=== PATIENT | female | born 1980 ===

== ENCOUNTER 2017-04-11 18:19 | Emergency (ER) | payer OTHER ==
[2017-04-11 18:30] VITALS: BP 135/84; PULSE 79; RESP 18; TEMP 99.2; O2SAT 100
--- NOTE | 2017-04-11 19:07 | ED PDOC ---
HPI: CCC, URI, Sore Throat Time Seen by Provider: 04/11/17 18:31 Chief Complaint (Nursing): Headache Chief Complaint (Provider): sinus pain History Per: Patient History/Exam Limitations: no limitations Additional Complaint(s): 36yo F in ED for eval frontal sinus pressure x 1 week-with body aches, took theraflu and not effective. no fever no chills no abd pain no rash no cough no rhinorrhea. Past Medical History Reviewed: Historical Data, Nursing Documentation, Vital Signs Vital Signs: Last Vital Signs Temp 99.2 F 04/11/17 18:28 Pulse 79 04/11/17 18:28 Resp 18 04/11/17 18:28 BP 135/84 04/11/17 18:28 Pulse Ox 100 04/11/17 18:28 - Medical History PMH: No Chronic Diseases - Surgical History Surgical History: Cholecystectomy - Family History Family History: States: No Known Family Hx - Home Medications Home Medications: Ambulatory Orders Medication Instructions Recorded Acetaminophen/Butalbital/Caf 1 tab PO Q6 #12 tab 04/11/17 [Fioricet] Mometasone Furoate [Nasonex] 1 - 2 spray NS BID #17 gm 04/11/17 - Allergies Allergies/Adverse Reactions: Allergies Allergy/AdvReac Type Severity Reaction Status Date / Time No Known Allergies Allergy Verified 04/11/17 18:28 Review of Systems ROS Statement: Except As Marked, All Systems Reviewed And Found Negative ENT: Negative for: Ear Pain, Ear Discharge, Nose Pain, Nose Discharge, Nose Congestion, Mouth Pain, Mouth Swelling, Throat Pain, Throat Swelling Respiratory: Negative for: Cough, Shortness of Breath Physical Exam - Reviewed Nursing Documentation Reviewed: Yes Vital Signs Reviewed: Yes - Physical Exam Appears: Positive for: Well, Non-toxic, No Acute Distress Head Exam: Positive for: ATRAUMATIC, NORMAL INSPECTION, NORMOCEPHALIC Skin: Positive for: Normal Color, Warm, DRY Eye Exam: Positive for: Normal appearance, EOMI, PERRL. Negative for: Periorbital swelling, Periorbital tenderness ENT: Positive for: Normal ENT Inspection, Nasal Congestion, Other (post nasal drip). Negative for: Pharyngeal Erythema, Tonsillar Exudate, Tonsillar Swelling Neck: Positive for: Normal, Painless ROM Cardiovascular/Chest: Positive for: Regular Rate, Rhythm Respiratory: Positive for: CNT, Normal Breath Sounds Neurologic/Psych: Positive for: Alert, Oriented - ECG O2 Sat by Pulse Oximetry: 100 Medical Decision Making Medical Decision Making: pt with viral sinusitis. will be d/c with fiorcet for BRIAN and nasonex for nasal passage. avised to f.u with pmd. Disposition - Clinical Impression Clinical Impression: Sinus headache - Patient ED Disposition Is Patient to be Admitted: No Counseled Patient/Family Regarding: Need For Followup - Disposition Disposition: Routine/Home Disposition Time: 19:09 Condition: STABLE Prescriptions: Acetaminophen/Butalbital/Caf [Fioricet] 1 tab PO Q6 #12 tab Mometasone Furoate [Nasonex] 1 - 2 spray NS BID #17 gm Instructions: Acute Headache (ED), Sinusitis (ED) Forms: [facility] (Slovenian)
== END 2017-04-11 19:22 | disposition home or self-care (01) ==
LOC: H.ER 18:19
DX: R51 Headache (principal)

== ENCOUNTER 2018-06-01 01:41 | Emergency (ER) | payer SELFPAY ==
[2018-06-01 01:59] VITALS: TEMP 98; O2SAT 100
--- NOTE | 2018-06-01 02:26 | ED PDOC ---
HPI: Hypertension/Hypotension Time Seen by Provider: 06/01/18 02:01 Chief Complaint (Nursing): High Blood Pressure Chief Complaint (Provider): High Blood Pressure History Per: Patient History/Exam Limitations: no limitations Current Symptoms Are (Timing): Still Present Additional Complaint(s): 37 year old female, with no past medical history, presents to the ED complaining of high blood pressure. Patient reports she self diagnosed herself with hypertension 1 month ago when she had an episode of a headache associated with numbness. She states she has been taking her mother's antihypertensive medication from time to time. Today, patient felt a sense of numbness and headache and had no access to hypertension medication. She also indicates having a blood pressure of 180/110 and came to the ER for medical evaluation. Denies fever, cough, SOB, or recent weight gain. Reports having chest discomfort and states she has been eating healthily and is physically active. PMD: [facility] Past Medical History Reviewed: Historical Data, Nursing Documentation, Vital Signs Vital Signs: Last Vital Signs Temp 98 F 06/01/18 01:55 Pulse 72 06/01/18 01:55 Resp 16 06/01/18 01:55 BP 154/89 H 06/01/18 01:55 Pulse Ox 100 06/01/18 01:55 - Medical History PMH: No Chronic Diseases - Surgical History Surgical History: Cholecystectomy - Family History Family History: States: Unknown Family Hx - Social History Current smoker - smoking cessation education provided: No Alcohol: None Drugs: Denies - Home Medications Home Medications: Ambulatory Orders Medication Instructions Recorded Acetaminophen/Butalbital/Caf 1 tab PO Q6 #12 tab 04/11/17 [Fioricet] Mometasone Furoate [Nasonex] 1 - 2 spray NS BID #17 gm 04/11/17 - Allergies Allergies/Adverse Reactions: Allergies Allergy/AdvReac Type Severity Reaction Status Date / Time No Known Allergies Allergy Verified 06/01/18 01:59 Review of Systems ROS Statement: Except As Marked, All Systems Reviewed And Found Negative Constitutional: Negative for: Fever Cardiovascular: Positive for: Other (Chest discomfort) Respiratory: Negative for: Cough, Shortness of Breath Neurological: Positive for: Numbness, Headache Physical Exam - Reviewed Nursing Documentation Reviewed: Yes Vital Signs Reviewed: Yes - Physical Exam Appears: Positive for: Non-toxic, No Acute Distress Head Exam: Positive for: ATRAUMATIC, NORMOCEPHALIC Skin: Positive for: Normal Color, Warm, Dry Eye Exam: Positive for: Normal appearance Neck: Positive for: Normal, Painless ROM Cardiovascular/Chest: Positive for: Regular Rate, Rhythm. Negative for: Murmur Respiratory: Positive for: Normal Breath Sounds. Negative for: Wheezing, Re spiratory Distress Extremity: Positive for: Normal ROM Neurologic/Psych: Positive for: Alert, Oriented. Negative for: Motor/Sensory Deficits - Laboratory Results Result Diagrams: 06/01/18 02:40 06/01/18 02:40 - ECG O2 Sat by Pulse Oximetry: 100 (RA) Pulse Ox Interpretation: Normal Medical Decision Making Medical Decision Making: Initial Impression: 37 year old female with self diagnosed hypertension Initial Plan: --ECG --CMP --Urine --ED urine dipstick --CBC --Urinalysis 04:25 Labs reviewed and showed no clinically significant abnormalities. Patient reports being asymptomatic since being in the ED. Patient is stable for discharge with diagnosis of hypertension. Arrangements made with family practice resident to bring patient to the family practice clinic within 3-4 days for reevaluation. Spoke to Dr. Coreas who is the family practice resident. Scribe Attestation: Documented by David Ramirez acting as a scribe for Jeffry Albarran MD. Provider Scribe Attestation: All medical record entries made by the Scribe were at my direction and personally dictated by me. I have reviewed the chart and agree that the record accurately reflects my personal performance of the history, physical exam, medical decision making, and the department course for this patient. I have also personally directed, reviewed, and agree with the discharge instructions and disposition. Disposition - Clinical Impression Clinical Impression: Hypertension - Patient ED Disposition Is Patient to be Admitted: No - Disposition Referrals: [facility] [Outside] Disposition: Routine/Home Disposition Time: 04:25 Condition: STABLE Instructions: High Blood Pressure in Adults, DASH Diet, Low Salt Diet, Controlling Your Blood Pressure Through Lifestyle Forms: [facility] (Australian) Print Language: THAI
[2018-06-01 02:31] VITALS: RESP 18
[2018-06-01 02:56] LABS: SQUAMOUS EPITHIAL 1 /hpf (0-5); URINE BILIRUBIN NEGATIVE (NEGATIVE); URINE BLOOD LARGE (NEGATIVE); URINE CLARITY CLEAR (Clear); URINE COLOR STRAW (YELLOW); URINE GLUCOSE (UA) NEG (Normal); URINE LEUKOCYTE ESTERASE NEG Leu/uL (Negative); URINE PROTEIN NEGATIVE (NEGATIVE); URINE UROBILINOGEN 0.2-1.0 mg/dL (0.2-1.0)
[2018-06-01 03:04] LABS: ALB/GLOB RATIO 1.3 (1.0-2.1); ALBUMIN 4.1 g/dL (3.5-5.0); ALT/SGPT 40 U/L (9-52); AST/SGOT 32 U/L (14-36); BLOOD UREA NITROGEN 16 mg/dl (7-17); CALCIUM 8.8 mg/dL (8.4-10.2); GFR NON-AFRICAN AMERICAN > 60
[2018-06-01 04:02] LABS: BASO % 0.9 % (0.0-2.0); EOS % 2.8 % (0.0-4.0); HEMOGLOBIN 12.8 g/dL (12.0-16.0); LYMPH # 1.4 K/uL (1.0-4.3); LYMPH % 25.2 % (20.0-40.0); MEAN CELL VOLUME 89.6 fl (81.0-99.0); MEAN CORPUSCULAR HEMOGLOBIN 29.6 pg (27.0-31.0); MEAN PLATELET VOLUME 11.4 fl (7.2-11.7); NEUT # 3.5 K/uL (1.8-7.0); NEUT % 61.1 % (50.0-75.0); RBC 4.32 Mil/uL (3.80-5.20); RED CELL DISTRIBUTION WIDTH 13.7 % (11.5-14.5); WHITE BLOOD COUNT 5.7 K/uL (4.8-10.8)
[2018-06-01 04:03] LABS: BASO # 0.1 K/uL (0.0-0.2); EOS # 0.2 K/uL (0.0-0.7); MONO # 0.6 K/uL (0.0-0.8)
[2018-06-01 04:19] VITALS: BP 138/86; PULSE 79
--- NOTE | 2018-06-01 08:54 | CARD ---
APPROVED REPORT Date of service: 06/01/2018 EKG Measurement Heart [id number] <Conclusion> Normal sinus rhythm Normal ECG
== END 2018-06-01 04:33 | disposition home or self-care (01) ==
LOC: H.ER 01:41
DX: I10 Essential (primary) hypertension (principal)

== ENCOUNTER 2018-10-01 08:47 | Emergency (ER) | payer OTHER ==
[2018-10-01 08:52] VITALS: BMI 25.0
--- NOTE | 2018-10-01 09:30 | ED PDOC ---
Upper Extremity Pain/Injury Time Seen by Provider: 10/01/18 09:05 Chief Complaint (Nursing): Upper Extremity Problem/Injury Past Medical History Vital Signs: Last Vital Signs Temp 98.3 F 10/01/18 08:52 Pulse 74 10/01/18 08:52 Resp 17 10/01/18 08:52 BP 136/94 H 10/01/18 08:52 Pulse Ox 98 10/01/18 08:52 - Surgical History Surgical History: Cholecystectomy - Family History Family History: States: Unknown Family Hx - Home Medications Home Medications: Ambulatory Orders Medication Instructions Recorded Ibuprofen [Motrin] 600 mg PO TID 7 Days tab 10/01/18 traMADol [Ultram] 50 mg PO BID PRN 3 Days tab 10/01/18 - Allergies Allergies/Adverse Reactions: Allergies Allergy/AdvReac Type Severity Reaction Status Date / Time No Known Allergies Allergy Verified 10/01/18 08:56 - ECG O2 Sat by Pulse Oximetry: 98 - Progress ED Course And Treament: 928: Stable. AAOx3. Pain free. Tolerated PO. FU with pcp. Disposition - Clinical Impression Clinical Impression: Wrist pain - Patient ED Disposition Is Patient to be Admitted: No Counseled Patient/Family Regarding: Diagnosis, Need For Followup, Rx Given - Disposition Referrals: Sudheer Collins MD [Staff Provider] - 10/04/18 Disposition: Routine/Home Disposition Time: 09:30 Condition: STABLE Additional Instructions: Return if not better in 3 days. Prescriptions: Ibuprofen [Motrin] 600 mg PO TID 7 Days tab traMADol [Ultram] 50 mg PO BID PRN 3 Days tab PRN Reason: Pain, Moderate (4-7) Instructions: Common Wrist Injuries Forms: [facility] (French), [facility] ED School/Work Excuse
[2018-10-01 09:50] VITALS: BP 131/85; PULSE 68; RESP 15; TEMP 98.7; O2SAT 100
== END 2018-10-01 09:48 | disposition home or self-care (01) ==
LOC: H.ER 08:47
DX: M65.841 Other synovitis and tenosynovitis, right hand (principal); I10 Essential (primary) hypertension
CPT/HCPCS: 29125; 81025; 96372; 99285; J1885